=== PATIENT | male | born 1955 | race Caucasian/White ===

== ENCOUNTER 2016-06-08 09:22 | Emergency (ER) | payer OTHER ==
[~2016-06-08] VITALS: Ht 190.5 cm; Wt 121.4 kg
[2016-06-08] MEDS ORDERED: FISH OIL 1,0001 EAC7 PO (09:29)
[2016-06-08] MEDS ORDERED: ASPIRIN325 MG PO (09:29)
[2016-06-08] MEDS ORDERED: ZOCOR20 MG PO (09:30)
[2016-06-08] MEDS ORDERED: METAMUCIL0.4 GM PO (09:31)
[2016-06-08] MEDS ORDERED: TRIAMTERENE-HC1 EACH PO (09:31)
[2016-06-08 09:52] LABS: EOSINOPHIL (%) 0.1 % (0-5); HEMATOCRIT 41.2 % (38.0-50.0); IMMATURE GRANULOCYTE (%) 0.3 % (0.0-0.7); INSTRUMENT ABS NEUTROPHIL CT 5.3 K/uL; LYMPHOCYTE COUNT 1.1 K/uL (1.0-2.8); MCH 29.7 PG (29.0-34.0); MCHC 34.2 G/DL (30.0-36.0); MCV 86.7 FL (86-99); MEAN PLAT.VOLUME 10.6 uM^3 (9.0-12.4); MONOCYTE (%) 3.1 % (3-12); MONOCYTE COUNT 0.2 K/uL (0-0.8); NEUTROPHIL (%) 79.1 % (45-76); NEUTROPHIL COUNT 5.3 K/uL (1.8-6.4); PLATELET COUNT 200 K/uL (156-360); RBC DIS.WIDTH-CV 12.6 % (11.8-14.6); RBC DIS.WIDTH-SD 39.8 % (39-53); RED BLOOD COUNT 4.75 M/uL (4.00-5.50); WHITE BLOOD COUNT 6.7 K/uL (4.1-10.2)
[2016-06-08 10:07] LABS: ADD MIUA? NO; BILIRUBIN NEGATIVE; BLOOD NEGATIVE; COLOR YELLOW ((YELLOW)); GLUCOSE (STRIP) NEGATIVE; KETONES NEGATIVE; LEUKOCYTES NEGATIVE; NITRITE NEGATIVE; PROTEIN (STRIP) NEGATIVE; SPECIFIC GRAVITY 1.012 (1.000-1.030); UROBILINOGEN 0.2 MG/DL (0.2-1.0)
[2016-06-08 10:35] LABS: CHLORIDE 105 mEq/L (99-109); POTASSIUM 3.6 mEq/L (3.7-5.4); SODIUM 139 mEq/L (136-147)
[2016-06-08 10:37] LABS: GLUCOSE 130 mg/dL (70-99)
[2016-06-08 10:39] LABS: ANION GAP 8 MEQ/L (2-14); TOTAL BILIRUBIN 0.3 mg/dL (0.0-1.0)
[2016-06-08 10:41] LABS: ALKALINE PHOSPHATASE 104 IU/L (3-129); GFR ESTIMATE (CALCULATED) > 59 mL/min/
[2016-06-08 10:42] LABS: UREA NITROGEN (BUN) 15 mg/dL (9-23)
[2016-06-08] MEDS ORDERED: MOTRIN600 MG PO (12:14)
[2016-06-08] MEDS ORDERED: FLOMAX0.4 MG PO (12:14)
[2016-06-08] MEDS ORDERED: PERCOCET 5/31 TABLET PO (12:14)
[2016-06-08 13:14] VITALS: BP 134/79
== END 2016-06-08 13:15 ==
LOC: EME 09:22
PROVIDERS: Emergency Medicine
DX: N20.0 Calculus of kidney (principal); E78.5 Hyperlipidemia, unspecified; I10 Essential (primary) hypertension; Z87.891 Personal history of nicotine dependence
CPT/HCPCS: 74177; 80053; 81003; 85025; 99281; 99284; J1885; J2270; J2405; J7030